=== PATIENT | male | born 1980 | race Caucasian/White ===

== ENCOUNTER 2017-10-08 01:49 | Emergency (ER) | payer BC ==
[2017-10-08 01:54] VITALS: BP 134/88; PULSE 71; TEMP 98.1; BMI 25.5
[2017-10-08] MEDS ORDERED: KETOROLAC TROMETHAMINE 60 MG/2 ML VIAL IM ONE (02:09)
--- NOTE | 2017-10-08 02:21 | PDOC ---
History of Present Illness - General Chief Complaint: Back Pain Stated Complaint: BACK PAIN Time Seen by Provider: 10/08/17 02:06 - History of Present Illness Initial Comments: 10/08/17 02:18 CHIEF COMPLAINT: back pain HISTORY OF PRESENT ILLNESS: 37 yo M with no PMH presents to ED with R lower back pain x 2 days. 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 PAST MEDICAL HISTORY: Denies past medical history FAMILY HISTORY: Denies Denies tobacco, alcohol, illicit drug use. SURGICAL HISTORY: Denies ALLERGIES: No known drug allergies REVIEW OF SYSTEMS General/Constitutional: Denies fever or chills. Denies weakness, weight change. HEENT: Denies change in vision. Denies ear pain or discharge. Denies sore throat. Cardiovascular: Denies chest pain or shortness of breath. Respiratory: Denies cough, wheezing, or hemoptysis. Gastrointestinal: Denies nausea, vomiting, diarrhea or constipation. Denies rectal bleeding. Genitourinary: Denies dysuria, frequency, or change in urination. Musculoskeletal: L lower back pain. Neurologic: Denies loss of sensation. PHYSICAL EXAM General Appearance: Uncomfortable-appearing, appropriately dressed. No apparent distress. HEENT: EOMI, PERRLA. No conjunctival pallor. No photophobia, scleral icterus. Respiratory/Chest: Lungs CTAB. Cardiovascular: RRR. S1, S2. Gastrointestinal/Abdominal: Normal bowel sounds. Abdomen soft, non-distended. No tenderness or rebound tenderness. No organomegaly, pulsatile mass, guarding , hernia, hepatomegaly, splenomegaly. Musculoskeletal/Extremities: No loss of sensation to lower extremities b/l. Patient Normal inspection. FROM of all extremities, normal capillary refill. Pelvis Stable. No CVA tenderness. No tenderness to extremities, pedal edema, swelling, erythema or deformity. Integumentary: Appropriate color, dry, warm. 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 Fully oriented, alert. Appropriate mood/affect. Motor strength 5/5. No appreciable EOM palsy, facial droop or sensory deficit. Past History - Past Medical History Allergies/Adverse Reactions: Allergies Allergy/AdvReac Type Severity Reaction Status Date / Time No Known Allergies Allergy Verified 10/08/17 01:54 Home Medications: Ambulatory Orders Naproxen [Naprosyn -] 250 mg PO BID #20 tablet 10/08/17 - Suicide/Smoking/Psychosocial Hx Smoking History: Never smoked Have you smoked in the past 12 months: No Information on smoking cessation initiated: No Hx Alcohol Use: No Drug/Substance Use Hx: No *Physical Exam - Vital Signs Last Vital Signs Temp Pulse Resp BP Pulse Ox 98.1 F 71 20 134/88 99 10/08/17 01:52 10/08/17 01:52 10/08/17 01:52 10/08/17 01:52 10/08/17 01:52 Medical Decision Making - Medical Decision Making 10/08/17 02:21 37 yo M with no PMH presents to ED with R lower back pain x 2 days. -60 mg Toradol IM 10/08/17 02:45 Patient continues to complain of pain. Patient and state they are not driving as they took an ambulance to hospital and will take a cab home. -5 mg Valium po 10/08/17 03:15 Patient continues to complain of pain -2 tab percocet -8 mg zofran 10/08/17 03:38 Patient reassessed; he is feeling better but sleepy and wants to go home. *DC/Admit/Observation/Transfer Diagnosis at time of Disposition: Low back pain with sciatica Qualifiers: Chronicity: acute Back pain laterality: right Sciatica laterality: sciatica of right side Qualified Code(s): M54.41 - Lumbago with sciatica, right side; M54.41 - Lumbago with sciatica, right side - Discharge Dispostion Disposition: HOME Condition at time of disposition: Stable Admit: No - Prescriptions Prescriptions: Naproxen [Naprosyn -] 250 mg PO BID #20 tablet - Referrals Referrals: Dawood Dodson MD [Staff Physician] - Aj Solis MD [Staff Physician] - - Patient Instructions Printed Discharge Instructions: DI for Back Pain With Sciatica Additional Instructions: Please take medications as prescribed. As discussed, you MUST follow up with orthopedics this week for further evaluation of your back pain. You may need an MRI and/or physical therapy for treatment of your new onset back pain. If you develop ANY loss of sensation to your legs, any loss of bowel or bladder function, inability to walk or stand, or any NEW or worsening symptoms, please return to the ER. - Post Discharge Activity Forms/Work/School Notes: Back to Work
[2017-10-08] MEDS ORDERED: diazePAM 5 MG TABLET PO ONE (02:37)
[2017-10-08] MEDS ORDERED: ONDANSETRON *ODT* 4 MG TABLET SL ONE (03:12)
== END 2017-10-08 03:59 | disposition home or self-care (01) ==
LOC: JER 01:49
PROC: 3E0233Z Introduction of Anti-inflammatory into Muscle, Percutaneous Approach (ICD-10-PCS; principal; 2017-10-08)
DX: M54.41 Lumbago with sciatica, right side (principal)
CPT/HCPCS: 99281-25; 99282-25